=== PATIENT | male | born 1980 | race Caucasian/White ===

== ENCOUNTER 2024-10-29 23:40 | Emergency (ER) | payer BC ==
[2024-10-29] MEDS ORDERED: Sodium Chloride 0.9% 10 ML Syringe FLUSH PRN (23:53)
[2024-10-30 00:08] LABS: BASOPHILS PERCENT AUTO 0.3 % (0.0-1.0); EOSINOPHILS PERCENT AUTO 3.5 % (1.0-3.0); HEMATOCRIT 44.6 % (40.0-54.0); HEMOGLOBIN 15.3 g/dL (14.0-18.0); LYMPHOCYTES PERCENT AUTO 14.2 % (20.5-50.1); MEAN CORPUSCULAR HEMOGLOBIN 29.9 pg (27.0-34.0); MEAN CORPUSCULAR HGB CONC 34.3 g/dL (33.0-35.0); MEAN CORPUSCULAR VOLUME 87.3 fL (80-100); MONOCYTES PERCENT AUTO 9.4 % (2-8); NEUTROPHILS PERCENT AUTO 72.6 % (42.2-75.2); PLATELET COUNT,PLT 224 10^3/uL (150-450); RED BLOOD CELL COUNT 5.11 10^6/uL (4.6-6.2); WHITE BLOOD CELL COUNT,WBC 12.8 10^3/uL (5.0-10.0)
[2024-10-30] MEDS: fentaNYL 100 MCG/2 ML SDV IVPUSH ONE (00:09)
[2024-10-30] MEDS: fentaNYL 100 MCG/2 ML SDV ONE (00:10)
[2024-10-30 00:28] LABS: A/G RATIO 1.3; ALBUMIN 4.1 g/dL (3.4-5.0); ANION GAP 12.8 mEq/L (7-13); BILIRUBIN TOTAL 0.6 mg/dL (0.2-1.0); BUN/CREATININE RATIO 11.7 (No establ ref range); C-REACTIVE PROTEIN 3.78 ng/dL (<=0.50); CALCIUM 8.8 mg/dL (8.5-10.1); CREATININE 1.2 mg/dL (0.70-1.30); EST CRCL DRUG DOSING (CG) 91.33 mL/min; MAGNESIUM 2.1 mg/dL (1.8-2.4); POTASSIUM,K 3.8 mmol/L (3.5-5.1); PROTEIN TOTAL,TP 7.3 g/dL (6.4-8.2)
[2024-10-30] MEDS ORDERED: Naloxone 2 MG/2 ML Syringe IVPUSH PRN ×2 (00:28→02:24)
[2024-10-30] MEDS: Morphine 4 MG/ML Syringe IVPUSH ONE (00:31)
[2024-10-30] MEDS: Iopamidol 612 MG/ML 100 ML Bottle IVPUSH ONE (00:44)
[2024-10-30] MEDS: Lactated Ringers 1,000 ML IV SCH (01:14)
[2024-10-30 01:36] VITALS: BP 116/68; PULSE 85
[2024-10-30] MEDS: Morphine 2 MG/ML SYRINGE IVPUSH ONE (02:29)
== END 2024-10-30 02:46 ==
LOC: DL.ED 23:40
DX: K35.30 Acute appendicitis with localized peritonitis, without perforation or gangrene (principal); D72.825 Bandemia; I10 Essential (primary) hypertension; Z90.49 Acquired absence of other specified parts of digestive tract; Z79.899 Other long term (current) drug therapy
CPT/HCPCS: 36415; 74177; 80053; 83605; 83690; 83735; 85025; 86140; 96361; 96374; 96375; 96376; 99285; J2270; J3010; J7120; Q9967

== ENCOUNTER 2025-02-21 19:31 | Emergency (ER) | payer BC ==
[2025-02-21] MEDS ORDERED: Sodium Chloride 0.9% 10 ML Syringe FLUSH PRN (20:33)
[2025-02-21] MEDS: Sodium Chloride 0.9% 1,000 ML IV ONE (20:42)
[2025-02-21 20:49] LABS: HEMATOCRIT 34.8 % (40.0-54.0); HEMOGLOBIN 11.9 g/dL (14.0-18.0); MEAN CORPUSCULAR HEMOGLOBIN 29.2 pg (27.0-34.0); MEAN CORPUSCULAR HGB CONC 34.2 g/dL (33.0-35.0); MEAN CORPUSCULAR VOLUME 85.3 fL (80-100); PLATELET COUNT,PLT 353 10^3/uL (150-450); RED BLOOD CELL COUNT 4.08 10^6/uL (4.6-6.2); WHITE BLOOD CELL COUNT,WBC 13.8 10^3/uL (5.0-10.0)
[2025-02-21 20:53] LABS: BASOPHILS PERCENT AUTO 0.5 % (0.0-1.0); LYMPHOCYTES PERCENT AUTO 31.4 % (20.5-50.1); MONOCYTES PERCENT AUTO 9.1 % (2-8)
[2025-02-21] MEDS: Pantoprazole 40 MG Vial IVPUSH ONE (20:57)
[2025-02-21] MEDS: Pantoprazole 40 MG in Sodium Chloride 0.9% 100 ML IV SCH (21:06)
[2025-02-21 21:08] LABS: PROTHROMBIN TIME 10.7 SEC (9.0-12.0); PTT,PARTIAL THROMBOPLSTIN TIME 20.5 SEC (22.0-34.0)
[2025-02-21 21:09] LABS: A/G RATIO 1.3; ALANINE AMINOTRANSFERASE,ALT 65 U/L (16-63); ALBUMIN 4.1 g/dL (3.4-5.0); ALKALINE PHOSPHATASE 67 U/L (46-116); ANION GAP 12.5 mEq/L (7-13); ASPARTATE AMNIOTRANSFERASE,AST 24 U/L (15-37); BILIRUBIN TOTAL 0.3 mg/dL (0.2-1.0); BLOOD UREA NITROGEN,BUN 22 mg/dL (7-18); BUN/CREATININE RATIO 21.8 (No establ ref range); CALCIUM 9.1 mg/dL (8.5-10.1); CARBON DIOXIDE,CO2 28 mmol/L (21-32); CHLORIDE,CL 103 mmol/L (98-107); CREATININE 1.01 mg/dL (0.70-1.30); EST CRCL DRUG DOSING (CG) 107.38 mL/min; GLUCOSE RANDOM 125 mg/dL (70-99); POTASSIUM,K 3.5 mmol/L (3.5-5.1); PROTEIN TOTAL,TP 7.3 g/dL (6.4-8.2); SODIUM,NA 140 mmol/L (136-145)
[2025-02-21 21:13] LABS: C-REACTIVE PROTEIN < 0.50 ng/dL (<=0.50); ESTIMATED GFR 93 mL/min (>=60); LACTIC ACID 2.6 mmol/L (0.4-2.0)
[2025-02-21 21:22] LABS: SEG NEUTROPHILS PERCENT MAN 58 % (42-75)
[2025-02-21 21:23] LABS: EOSINOPHILS PERCENT MAN 2 % (1-3); LYMPHOCYTES % ATYPICAL MANUAL 4 %; LYMPHOCYTES PERCENT MAN 28 % (20-50); MONOCYTES PERCENT MAN 8 % (2-8)
[2025-02-21] MEDS: Iopamidol 612 MG/ML 100 ML Bottle IVPUSH ONE ×2 (21:38→21:39)
[2025-02-22 00:20] VITALS: BP 118/77; PULSE 92
== END 2025-02-22 00:05 | disposition home or self-care (01) ==
LOC: DL.ED 19:31
DX: K92.2 Gastrointestinal hemorrhage, unspecified (principal); I10 Essential (primary) hypertension; Z79.899 Other long term (current) drug therapy; Z90.49 Acquired absence of other specified parts of digestive tract
CPT/HCPCS: 36415; 74177; 80053; 82272; 83605; 83735; 85025; 85610; 85730; 86140; 93005; 93010; 96365; 96366; 99285; 99285-25; J2470; J7030; Q9967